=== PATIENT | male | born 2000 | race Two or more races ===

== ENCOUNTER 2022-10-27 15:26 | Emergency (ER) | payer OTHER ==
[~2022-10-27] VITALS: Ht 165.1 cm; Wt 81.8 kg
[2022-10-27] MEDS ORDERED: PB/HYOSCY/ATR/SCOP/LIDO/MAALOX 55 ML BOTTLE PO ONE (18:00)
[2022-10-27 18:20] LABS: BASOPHILS % (AUTO) 0.4 % (0.0-2.0); EOSINOPHILS % (AUTO) 0.8 % (1.0-6.0); HEMATOCRIT 45.8 % (41-53); HEMOGLOBIN 15.6 g/dL (13.5-17.5); LYMPHOCYTES # (AUTO) 1.9 K/uL (1.0-4.8); LYMPHOCYTES % (AUTO) 25.7 % (22.0-44.0); MEAN CORPUSCULAR HEMOGLOBIN 30.9 pg (26.0-34.0); MEAN CORPUSCULAR HGB CONC 34.1 G/dL (31.0-37.0); MEAN CORPUSCULAR VOLUME 91 fL (80-100); MONOCYTES # (AUTO) 0.5 K/uL (0.1-1.0); MONOCYTES % (AUTO) 7.1 % (2.0-9.0); PLATELET COUNT (AUTO) 249 K/uL (150-450); RED BLOOD CELL COUNT(AUTO) 5.06 MIL/uL (4.50-5.90); RED CELL DISTRIBUTION WIDTH 13.7 % (11.5-14.5)
[2022-10-27 18:28] LABS: ANION GAP 11 mmol/L (8-16); CALCIUM, TOTAL 9.7 mg/dL (8.8-10.5); CARBON DIOXIDE 29 mmol/L (22-29); CHLORIDE 102 mmol/L (98-107); GLOMERULAR FILTR. RATE CALC > 60 mL/min (>60); GLUCOSE,RANDOM 97 mg/dL (70-110); SODIUM SERUM 142 mmol/L (136-145); UREA NITROGEN, BLOOD 9 mg/dL (7-18)
[2022-10-27 18:34] LABS: ALANINE AMINOTRANSFERASE 46 U/L (12-78); ALBUMIN 4.7 g/dL (3.4-5.0); ALKALINE PHOSPHATASE 80 U/L (46-116); ASPARTATE AMINOTRANSFERASE 24 U/L (15-37); BILIRUBIN,TOTAL 0.8 mg/dL (0.1-1.0); LIPASE 61 U/L (73-393); TOTAL PROTEIN, SERUM 7.8 g/dL (6.4-8.2)
[2022-10-27 21:00] VITALS: BP 138/72
[2022-10-27] MEDS ORDERED: ACETAMINOPHEN 500 MG TABLET PO ONE (21:15)
== END 2022-10-27 22:09 ==
LOC: EMS 15:31
DX: R10.13 Epigastric pain (principal); F12.90 Cannabis use, unspecified, uncomplicated
CPT/HCPCS: 74176; 80053; 83690; 85025; 99285

== ENCOUNTER 2022-12-28 20:39 | Emergency (ER) | payer OTHER ==
[~2022-12-28] VITALS: Ht 165.1 cm; Wt 82.0 kg
[2022-12-28] MEDS: ACETAMINOPHEN 500 MG TABLET PO ONE (22:26)
[2022-12-29 00:17] VITALS: BP 128/70
== END 2022-12-29 00:18 ==
LOC: EMS 20:39
DX: S52.501A Unspecified fracture of the lower end of right radius, initial encounter for closed fracture (principal); F12.90 Cannabis use, unspecified, uncomplicated; W19.XXXA Unspecified fall, initial encounter; Y93.89 Activity, other specified; Y92.89 Other specified places as the place of occurrence of the external cause; Y99.8 Other external cause status
CPT/HCPCS: 99283

== ENCOUNTER → 2023-11-24 | Outpatient (CLI) | payer OTHER | END | disposition home or self-care (01) | LOC: RADMN 13:19 | PROVIDERS: ATTEND Physician Assistant | DX: M65.872 Other synovitis and tenosynovitis, left ankle and foot (principal); M25.472 Effusion, left ankle; M77.52 Other enthesopathy of left foot and ankle; M25.572 Pain in left ankle and joints of left foot; F28 Other psychotic disorder not due to a substance or known physiological condition | CPT/HCPCS: 73721 ==